=== PATIENT | female | born 1940 | race Caucasian/White ===

== ENCOUNTER 2017-10-26 10:14 | Inpatient (IN) | payer MEDICARE ==
[~2017-10-26] VITALS: Ht 165.1 cm; Wt 68.3 kg
[2017-10-26 12:10] VITALS: BP 136/75
[2017-10-26] MEDS ORDERED: IOPAMIDOL-370 100 ML VIAL IV ONE (12:22)
[2017-10-26] MEDS ORDERED: BIVALIRUDIN 250 MG/VIAL IV ONE (12:22)
[2017-10-26] MEDS ORDERED: IOPAMIDOL-370 75 ML VIAL IV ONE (12:22)
[2017-10-26] MEDS ORDERED: LIDOCAINE HCL 2% 20ML ONE (12:23)
[2017-10-26] MEDS ORDERED: MIDAZOLAM HCL 1 MG/ML 2ML VIAL ONE (12:23)
[2017-10-26] MEDS ORDERED: FENTANYL CITRATE PF 50 MCG/1 ML 2ML VIAL ONE (12:32)
[2017-10-26] MEDS ORDERED: AMLO5TAB2 PO (12:35)
[2017-10-26] MEDS ORDERED: SODIUM CHLORIDE 0.9% 500ML 500 ML IV SCH (12:44)
[2017-10-26] MEDS ORDERED: NITROGLYCERIN 0.4 MG SL TAB SL PRN (12:45)
[2017-10-26 13:06] LABS: HEMATOCRIT 39.7 % (36-48); MEAN CORPUSCULAR HEMOGLOBIN 32.3 pg (27.0-33.0); MEAN CORPUSCULAR HGB CONC 34.6 g/dL (32.0-36.0); MEAN CORPUSCULAR VOLUME 93.2 fL (79-99); PLATELET COUNT (AUTO) 277 K/uL (130-400); RED BLOOD CELL COUNT(AUTO) 4.26 MIL/uL (4.00-5.50); WHITE BLOOD COUNT (AUTO) 12.2 K/uL (4.8-10.8)
[2017-10-26 13:15] LABS: CREATININE 1.1 mg/dL (0.5-1.5); POTASSIUM 4.2 mmol/L (3.5-5.1)
[2017-10-26 13:20] LABS: INR 1.05 (0.85-1.15); PARTIAL THROMBOPLASTIN TIME 31.2 SEC (26.3-35.5)
[2017-10-26] MEDS ORDERED: ENOXAPARIN SODIUM 60 MG/0.6 ML SQ SCH (14:15)
[2017-10-26] MEDS: ISOSORBIDE MONO 30MG TAB SR PO SCH (15:01)
[2017-10-26 16:00] VITALS: BP 110/38
[2017-10-26 19:39] VITALS: BP 126/49
[2017-10-26] MEDS: TICAGRELOR 90 MG TABLET PO SCH (22:07)
[2017-10-26] MEDS: ATORVASTATIN CALCIUM 20 MG TABLET PO SCH (22:07)
[2017-10-26] MEDS: METOPROLOL TARTRATE 50 MG TAB PO SCH (22:07)
[2017-10-26 22:49] VITALS: BP 149/73
[2017-10-27] VITALS (12 sets, daily range): BP systolic 135–166; BP diastolic 50–69
[2017-10-27] MEDS ORDERED: MORPHINE SULFATE 2 MG/ML 1ML SYG IV PRN (00:15)
[2017-10-27] MEDS ORDERED: HYDRALAZINE HCL 20 MG/ML VIAL IV PRN ×2 (00:15→11:00)
[2017-10-27] MEDS ORDERED: ONDANSETRON HCL 4 MG/2 ML VIAL IV PRN (00:15)
[2017-10-27] MEDS ORDERED: ACETAMINOPHEN 325 MG TAB PO PRN (00:15)
[2017-10-27] MEDS: TICAGRELOR 90 MG TABLET PO SCH ×3 (07:45→21:22)
[2017-10-27] MEDS: ISOSORBIDE MONO 30MG TAB SR PO SCH (07:45)
[2017-10-27] MEDS: METOPROLOL TARTRATE 50 MG TAB PO SCH ×2 (07:45→21:22)
[2017-10-27] MEDS: LISINOPRIL 10 MG TABLET PO SCH (07:45)
[2017-10-27] MEDS: ASPIRIN 81MG TAB.CHEW PO SCH (07:45)
[2017-10-27] MEDS ORDERED: BIVALIRUDIN 250 MG/VIAL IV ONE (09:25)
[2017-10-27] MEDS ORDERED: IOPAMIDOL-370 75 ML VIAL IV ONE (09:25)
[2017-10-27] MEDS ORDERED: IOPAMIDOL-370 100 ML VIAL IV ONE ×2 (09:25→10:26)
[2017-10-27] MEDS ORDERED: HEPARIN SODIUM 1000UNIT/ML 10ML VIAL ONE (09:25)
[2017-10-27] MEDS ORDERED: LIDOCAINE HCL 2% 20ML ONE (09:26)
[2017-10-27] MEDS ORDERED: LABETALOL 20 MG/4 ML DISP.SYRIN IV ONE (10:49)
[2017-10-27] MEDS ORDERED: TICAGRELOR 90 MG TABLET ONE (10:50)
[2017-10-27] MEDS ORDERED: ASPIRIN 325MG EC TAB 325 MG TABLET.DR PO ONE (10:50)
[2017-10-27] MEDS ORDERED: SODIUM CHLORIDE 0.9% 1000ML 1,000 ML IV SCH (10:58)
[2017-10-27] MEDS ORDERED: METOPROLOL TARTRATE 1 MG/ML 5ML VIAL IV PRN (11:00)
[2017-10-27] MEDS: ASPIRIN 325MG EC TAB 325 MG TABLET.DR PO SCH (11:36)
[2017-10-27] MEDS ORDERED: TICAGRELOR 90 MG TABLET PO SCH (21:00)
[2017-10-27] MEDS: ATORVASTATIN CALCIUM 20 MG TABLET PO SCH (21:23)
[2017-10-28 03:49] VITALS: BP 180/73
[2017-10-28 04:06] LABS: BASOPHILS % (AUTO) 0.4 % (0.0-5.0); EOSINOPHILS % (AUTO) 3.4 % (0.0-8.0); LYMPHOCYTES % (AUTO) 19.6 % (21.0-51.0); MEAN CORPUSCULAR HEMOGLOBIN 32.1 pg (27.0-33.0); MEAN CORPUSCULAR HGB CONC 34.4 g/dL (32.0-36.0); MEAN CORPUSCULAR VOLUME 93.4 fL (79-99); MONOCYTES % (AUTO) 9.3 % (3.0-13.0); NEUTROPHILS % (AUTO) 67.3 % (40.0-77.0); PLATELET COUNT (AUTO) 204 K/uL (130-400); RED BLOOD CELL COUNT(AUTO) 3.64 MIL/uL (4.00-5.50); RED CELL DISTRIBUTION WIDTH 12.9 % (11.0-15.5); WHITE BLOOD COUNT (AUTO) 9.3 K/uL (4.8-10.8)
[2017-10-28 04:20] LABS: CREATININE 0.7 mg/dL (0.5-1.5); POTASSIUM 3.8 mmol/L (3.5-5.1)
[2017-10-28 05:38] VITALS: BP 138/59
[2017-10-28] MEDS: ASPIRIN 325MG EC TAB 325 MG TABLET.DR PO SCH (07:00)
[2017-10-28] MEDS: TICAGRELOR 90 MG TABLET PO SCH ×2 (07:00→08:11)
[2017-10-28 07:10] VITALS: BP 139/59
[2017-10-28] MEDS: ASPIRIN 81MG TAB.CHEW PO SCH (08:11)
[2017-10-28] MEDS: ISOSORBIDE MONO 30MG TAB SR PO SCH (08:12)
[2017-10-28] MEDS: LISINOPRIL 10 MG TABLET PO SCH (08:12)
[2017-10-28] MEDS: METOPROLOL TARTRATE 50 MG TAB PO SCH (08:12)
== END 2017-10-28 13:51 | disposition home or self-care (01) | DRG 246 ==
LOC: 2AH 12:03
PROVIDERS: ADMIT Family Medicine; ATTEND Family Medicine
PROC: B2111ZZ Fluoroscopy of Multiple Coronary Arteries using Low Osmolar Contrast (ICD-10-PCS; principal; 2017-10-27)
PROC: 027034Z Dilation of Coronary Artery, One Artery with Drug-eluting Intraluminal Device, Percutaneous Approach (ICD-10-PCS; 2017-10-27)
PROC: 4A023N7 Measurement of Cardiac Sampling and Pressure, Left Heart, Percutaneous Approach (ICD-10-PCS; 2017-10-27)
PROC: B2151ZZ Fluoroscopy of Left Heart using Low Osmolar Contrast (ICD-10-PCS; 2017-10-27)
DX: I21.4 Non-ST elevation (NSTEMI) myocardial infarction (principal); I50.31 Acute diastolic (congestive) heart failure; E78.5 Hyperlipidemia, unspecified; I11.0 Hypertensive heart disease with heart failure; Z79.82 Long term (current) use of aspirin; Z79.899 Other long term (current) drug therapy
CPT/HCPCS: 36415; 80048; 85025; 85027; 85610; 85730; 93458; C1760; C1769; C1887; C1894; C9600; J0360; J0583; J1644; J1650; J2250; J3010; J3490; J7030; Q9967